=== PATIENT | male | born 1975 | race American Indian/Alaskan Native ===

== ENCOUNTER 2017-02-01 01:16 | Emergency (ER) | payer OTHER ==
[2017-02-01 02:28] LABS: Basophils % (Auto) 0.3 % (0.0-1.8); Hematocrit 42.4 % (35.5-45.6); Hemoglobin 14.3 gm/dl (11.8-15.2); Mean Corpuscular HGB Conc 34 % (32-34); Mean Corpuscular Hemoglobin 30 pg (28-32); Mean Corpuscular Volume 90 fl (84-94); Platelet Count 287 K/mm3 (140-440); Red Blood Count 4.72 M/mm3 (3.65-5.03); Red Cell Distribution Width 13.3 % (13.2-15.2); White Blood Count 10.6 K/mm3 (4.5-11.0)
[2017-02-01 02:40] LABS: INR 1.19 (0.87-1.13); Partial Thromboplastin Time 24.6 Sec. (24.2-36.6)
[2017-02-01 02:44] LABS: Anion Gap 19 mmol/L; Blood Urea Nitrogen 12 mg/dL (9-20); Calcium 9.7 mg/dL (8.4-10.2); Carbon Dioxide 25 mmol/L (22-30); Chloride 103.7 mmol/L (98-107); Glucose 103 mg/dL (75-100); Potassium 3.7 mmol/L (3.6-5.0); Sodium 144 mmol/L (137-145)
--- NOTE | 2017-02-01 10:30 | Emergency Department Report ---
ED Chest Pain HPI - General Chief Complaint: Chest Pain Stated Complaint: PALPITATIONS Time Seen by Provider: 02/01/17 10:28 Source: patient, EMS Mode of arrival: Ambulatory Limitations: No Limitations - History of Present Illness Initial Comments: The patient was found sleeping soundly. However he was easily arousable. He states he was only having chest pain for a few seconds. He had no associated symptoms. Who is nonpleuritic and nonradiating in the center of his chest. It is resolved. Apparently he was in a hotel room last night doing cocaine. Apparently he has some palpitations and the chart states confusion. However the patient not complaining of that now whatsoever. He is awake alert and oriented 4. The patient states she has "another issue". He was transported to this facility via EMS without shoes. Apparently the patient was transported via EMS with an elevated blood pressure. He was not confused or disoriented. His chief complaint was "heart beating fast". MD Complaint: chest pain -: Last night Onset: other Pain Location: substernal (of seconds duration) Pain Radiation: none Severity: mild Severity scale (0 -10): 0 Consistency: now resolved Improves With: nothing Worsens With: other (after cocaine abuse) Context: other re: diaphoresis (was apparently sweating per EMS). denies: nausea, vomting, dyspnea, sense of impending doom, other Other Symptoms: other (heart racing. 124 per EMS). denies: cough, fever, syncope, rash, acid taste in mouth, leg swelling Treatments Prior to Arrival: none Aspirin use within the Past 7 Days: (0) No - Related Data On Oral Contraceptives: No Allergies Allergy/AdvReac Type Severity Reaction Status Date / Time No Known Allergies Allergy Verified 02/01/17 01:48 Heart Score - HEART Score History: Slightly suspicious EKG: Normal Age: < 45 Risk factors: 1-2 risk factors Troponin: < normal limit HEART Score: 1 - Critical Actions Critical Actions: 0-3 pts:0.9-1.7%risk of adverse cardiac event.Candidate for discharge ED Review of Systems ROS: Stated complaint: PALPITATIONS Other details as noted in HPI Constitutional: denies: chills, fever Eyes: denies: eye pain, eye discharge, vision change ENT: denies: ear pain, throat pain Respiratory: denies: cough, shortness of breath, wheezing Cardiovascular: chest pain, palpitations Endocrine: no symptoms reported Gastrointestinal: denies: abdominal pain, nausea, diarrhea Genitourinary: denies: urgency, dysuria Musculoskeletal: denies: back pain, joint swelling, arthralgia Skin: denies: rash, lesions Neurological: denies: headache, weakness, paresthesias Psychiatric: denies: anxiety, depression Hematological/Lymphatic: denies: easy bleeding, easy bruising ED Past Medical Hx - Past Medical History Previous Medical History?: Yes Hx Hypertension: Yes - Surgical History Past Surgical History?: Yes Additional Surgical History: Rt Knee - Social History Smoking Status: Current Every Day Smoker Substance Use Type: Alcohol, Cocaine ED Physical Exam - General Limitations: No Limitations General appearance: alert, in no apparent distress - Head Head exam: Present: atraumatic, normocephalic - Eye Eye exam: Present: normal appearance, PERRL, EOMI. Absent: scleral icterus - ENT ENT exam: Present: mucous membranes moist - Neck Neck exam: Present: normal inspection. Absent: tenderness, meningismus - Respiratory Respiratory exam: Present: normal lung sounds bilaterally. Absent: respiratory distress - Cardiovascular Cardiovascular Exam: Present: regular rate, normal rhythm. Absent: systolic murmur, diastolic murmur, rubs, gallop - GI/Abdominal GI/Abdominal exam: Present: soft, normal bowel sounds. Absent: distended, tenderness, guarding, rebound, rigid - Rectal Rectal exam: Present: deferred - Extremities Exam Extremities exam: Present: normal inspection - Back Exam Back exam: Present: normal inspection - Neurological Exam Neurological exam: Present: alert, oriented X3, CN II-XII intact. Absent: motor sensory deficit - Psychiatric Psychiatric exam: Present: normal affect, normal mood - Skin Skin exam: Present: warm, dry, intact, normal color. Absent: rash ED Course Vital Signs 02/01/17 02/01/17 02/01/17 01:40 05:31 08:25 Temperature 98.1 F 98.4 F 98.6 F Pulse Rate 94 H 65 63 Respiratory 20 18 Rate Blood Pressure 154/101 Blood Pressure 159/108 150/98 [Right] O2 Sat by Pulse 100 100 99 Oximetry 02/01/17 02/01/17 11:00 11:10 Temperature Pulse Rate 50 L Respiratory 14 Rate Blood Pressure Blood Pressure 136/92 [Right] O2 Sat by Pulse 100 Oximetry BRITTNEY score - Brittney Score Age > 65: (0) No Aspirin use within the Past 7 Days: (0) No 3 or more CAD Risk Factors: (0) No 2 or more Angina events in past 24 hrs: (0) No Known CAD with more than 50% Stenosis: (0) No Elevated Cardiac Markers: (0) No ST Deviation Greater than 0.5mm: (0) No BRITTNEY Score: 0 ED Medical Decision Making - Lab Data Result diagrams: 02/01/17 02:04 02/01/17 02:04 Laboratory Results - last 24 hr 02/01/17 02/01/17 02/01/17 02:04 02:04 02:04 WBC 10.6 RBC 4.72 Hgb 14.3 Hct 42.4 MCV 90 MCH 30 MCHC 34 RDW 13.3 Plt Count 287 Lymph % (Auto) 11.5 L Ritchie % (Auto) 8.2 H Eos % (Auto) 0.0 Baso % (Auto) 0.3 Lymph # 1.2 Ritchie # 0.9 H Eos # 0.0 Baso # 0.0 Seg Neutrophils % 80.0 H Seg Neutrophils # 8.5 H PT 15.0 H INR 1.19 H APTT 24.6 Sodium 144 Potassium 3.7 Chloride 103.7 Carbon Dioxide 25 Anion Gap 19 BUN 12 Creatinine 1.1 Estimated GFR > 60 BUN/Creatinine Ratio 10.90 Glucose 103 H Calcium 9.7 Troponin T < 0.010 02/01/17 02/01/17 05:10 07:37 WBC RBC Hgb Hct MCV MCH MCHC RDW Plt Count Lymph % (Auto) Ritchie % (Auto) Eos % (Auto) Baso % (Auto) Lymph # Ritchie # Eos # Baso # Seg Neutrophils % Seg Neutrophils # PT INR APTT Sodium Potassium Chloride Carbon Dioxide Anion Gap BUN Creatinine Estimated GFR BUN/Creatinine Ratio Glucose Calcium Troponin T < 0.010 < 0.010 Laboratory Results - last 24 hr 02/01/17 02/01/17 02/01/17 02:04 02:04 02:04 WBC 10.6 RBC 4.72 Hgb 14.3 Hct 42.4 MCV 90 MCH 30 MCHC 34 RDW 13.3 Plt Count 287 Lymph % (Auto) 11.5 L Ritchie % (Auto) 8.2 H Eos % (Auto) 0.0 Baso % (Auto) 0.3 Lymph # 1.2 Ritchie # 0.9 H Eos # 0.0 Baso # 0.0 Seg Neutrophils % 80.0 H Seg Neutrophils # 8.5 H PT 15.0 H INR 1.19 H APTT 24.6 Sodium 144 Potassium 3.7 Chloride 103.7 Carbon Dioxide 25 Anion Gap 19 BUN 12 Creatinine 1.1 Estimated GFR > 60 BUN/Creatinine Ratio 10.90 Glucose 103 H Calcium 9.7 Total Creatine Kinase CK-MB (CK-2) CK-MB (CK-2) Rel Index Troponin T < 0.010 02/01/17 02/01/17 02/01/17 05:10 07:37 Unknown WBC RBC Hgb Hct MCV MCH MCHC RDW Plt Count Lymph % (Auto) Ritchie % (Auto) Eos % (Auto) Baso % (Auto) Lymph # Ritchie # Eos # Baso # Seg Neutrophils % Seg Neutrophils # PT INR APTT Sodium Potassium Chloride Carbon Dioxide Anion Gap BUN Creatinine Estimated GFR BUN/Creatinine Ratio Glucose Calcium Total Creatine Kinase 556 H CK-MB (CK-2) 3.1 CK-MB (CK-2) Rel Index 0.5 Troponin T < 0.010 < 0.010 Critical care attestation.: If time is entered above; I have spent that time in minutes in the direct care of this critically ill patient, excluding procedure time. ED Disposition Clinical Impression: Cocaine abuse Chest pain Qualifiers: Chest pain type: unspecified Qualified Code(s): R07.9 - Chest pain, unspecified Disposition: TO HOME OR SELFCARE Is pt being admited?: No Does the pt Need Aspirin: No Condition: Stable Instructions: Chest Pain (ED) Additional Instructions: Return any recurrent chest pain as needed. Outpatient follow-up is recommended. Referrals: [facility] [Primary Care Provider] - 3-5 Days [facility] [Provider Group] - 3-5 Days Time of Disposition: 11:20
[2017-02-01 10:46] LABS: Creatine Kinase MB 3.1 ng/mL (0.0-4.0)
[2017-02-01 11:56] VITALS: BP 140/89
== END 2017-02-01 11:54 | disposition home or self-care (01) ==
LOC: ED 01:16
DX: R07.9 Chest pain, unspecified (principal); F14.10 Cocaine abuse, uncomplicated; I10 Essential (primary) hypertension; F17.200 Nicotine dependence, unspecified, uncomplicated
CPT/HCPCS: 36415; 80048; 82550; 82553; 84484; 85025; 85610; 85730; 93005; 93010; 99284

== ENCOUNTER 2017-02-03 21:24 | Emergency (ER) | payer SELFPAY ==
[2017-02-03 23:10] VITALS: BP 119/67
[2017-02-03 23:35] LABS: Basophils % (Auto) 0.2 % (0.0-1.8); Hematocrit 40.7 % (35.5-45.6); Hemoglobin 13.7 gm/dl (11.8-15.2); Mean Corpuscular HGB Conc 34 % (32-34); Mean Corpuscular Hemoglobin 30 pg (28-32); Mean Corpuscular Volume 90 fl (84-94); Platelet Count 267 K/mm3 (140-440); Red Blood Count 4.53 M/mm3 (3.65-5.03); Red Cell Distribution Width 12.7 % (13.2-15.2); White Blood Count 16.4 K/mm3 (4.5-11.0)
[2017-02-03 23:44] LABS: Urine Drugs of Abuse Note Disclamer
[2017-02-04 00:04] LABS: BUN/Creatinine Ratio 6.25; Calcium 9.2 mg/dL (8.4-10.2); Potassium 3.4 mmol/L (3.6-5.0)
[2017-02-04 00:11] LABS: Bacteria,Urine 1+ /HPF (Negative); Bilirubin,Urine NEG (Negative); Blood,Urine SM (Negative); Ketones,Urine TR mg/dL (Negative); Leukocyte Esterase,Urine NEG (Negative); Mucus,Urine FEW /HPF; Nitrite,Urine NEG (Negative)
[2017-02-04] MEDS ORDERED: D50W (25GM) IV ONE (06:32)
== END 2017-02-03 23:28 | disposition left against medical advice (07) ==
LOC: ED 21:24
DX: F10.99 Alcohol use, unspecified with unspecified alcohol-induced disorder (principal); Y90.9 Presence of alcohol in blood, level not specified; Z79.899 Other long term (current) drug therapy; Z53.21 Procedure and treatment not carried out due to patient leaving prior to being seen by health care provider
CPT/HCPCS: 36415; 80048; 80307; 81001; 82962; 85025; G0480; 80320